=== PATIENT | male | born 1995 | race Caucasian/White ===

== ENCOUNTER 2016-09-28 16:29 | Emergency (ER) | payer BC ==
--- NOTE | 2016-09-28 19:20 | ER Document Report ---
ED General - General Chief Complaint: Cough Stated Complaint: CONGESTION,COUGH Information source: Patient, Relative TRAVEL OUTSIDE OF THE [place] IN LAST 30 DAYS: No - HPI Onset: Yesterday Onset/Duration: Gradual Quality of pain: Achy, Dull Associated symptoms: None - Related Data Allergies/Adverse Reactions: No Known Allergies Allergy (Verified 09/28/16 17:22) Past Medical History - Social History Smoking Status: Current Every Day Smoker Chew tobacco use (# tins/day): Yes Frequency of alcohol use: Rare Drug Abuse: None Family History: None Patient has suicidal ideation: No Patient has homicidal ideation: No Review of Systems - Review of Systems Constitutional: No symptoms reported EENT: Nose congestion, Nose discharge, Sinus discharge, Throat swelling Cardiovascular: No symptoms reported Respiratory: No symptoms reported Gastrointestinal: No symptoms reported Genitourinary: No symptoms reported Male Genitourinary: No symptoms reported Musculoskeletal: No symptoms reported Skin: No symptoms reported Hematologic/Lymphatic: No symptoms reported Neurological/Psychological: No symptoms reported Physical Exam - Vital signs Vitals: Temp Pulse Resp BP Pulse Ox 98.4 F 109 H 18 141/80 H 99 09/28/16 16:34 09/28/16 16:34 09/28/16 16:34 09/28/16 16:34 09/28/16 16:34 Interpretation: Normal - General General appearance: Appears well, Alert - HEENT Head: Normocephalic, Atraumatic Eyes: Normal Pupils: PERRL Sinus: Maxillary, Tenderness Nasal: Clear rhinorrhea Pharynx: Erythema, Exudate - Respiratory Respiratory status: No respiratory distress Chest status: Nontender Breath sounds: Normal Chest palpation: Normal - Cardiovascular Rhythm: Regular Heart sounds: Normal auscultation Murmur: No - Abdominal Inspection: Normal Distension: No distension Bowel sounds: Normal Tenderness: Nontender Organomegaly: No organomegaly - Back Back: Normal, Nontender - Extremities General upper extremity: Normal inspection, Nontender, Normal color, Normal ROM , Normal temperature General lower extremity: Normal inspection, Nontender, Normal color, Normal ROM , Normal temperature, Normal weight bearing. No: Gerardo's sign - Neurological Neuro grossly intact: Yes Cognition: Normal Orientation: AAOx4 [place] Coma Scale Eye Opening: Spontaneous [place] Coma Scale Verbal: Oriented [place] Coma Scale Motor: Obeys Commands Bak[place] Coma Scale Total: 15 Speech: Normal Motor strength normal: LUE, RUE, LLE, RLE Sensory: Normal - Psychological Associated symptoms: Normal affect, Normal mood - Skin Skin Temperature: Warm Skin Moisture: Dry Skin Color: Normal Course - Vital Signs Vital signs: Temp Pulse Resp BP Pulse Ox 98.4 F 109 H 18 141/80 H 99 09/28/16 16:34 09/28/16 16:34 09/28/16 16:34 09/28/16 16:34 09/28/16 16:34 Discharge - Discharge Clinical Impression: Pharyngitis Disposition: HOME, SELF-CARE Prescriptions: Penicillin V Potassium [Penicillin Vk 500 mg Tablet] 500 mg PO BID #20 tablet Prednisone [Deltasone 20 mg Tablet] 3 tab PO DAILY 5 Days
[2016-09-28 20:06] VITALS: BP 138/82
== END 2016-09-28 19:39 | disposition home or self-care (01) ==
LOC: ER 16:29
DX: J02.9 Acute pharyngitis, unspecified (principal); R09.81 Nasal congestion; J34.89 Other specified disorders of nose and nasal sinuses; F17.200 Nicotine dependence, unspecified, uncomplicated
CPT/HCPCS: 99283